=== PATIENT | male | born 1940 | race African-American/Black ===

== ENCOUNTER 2024-08-16 12:25 | Emergency (ER) | payer BC, MEDICARE ==
[~2024-08-16] VITALS: Ht 182.9 cm; Wt 105.0 kg
[~2024-08-16 12:25] MED LIST: CEPH500C2 PO; DOXA4TAB3 PO; DUTA0.5C2 PO; LISI10TA26 PO
[2024-08-16 12:31] VITALS: O2SAT 98
[2024-08-16 13:46] LABS: CLARITY URINE CLEAR (CLEAR); COLOR URINE YELLOW (YELLOW); GLUCOSE URINE NEGATIVE (NEGATIVE); KETONES URINE NEGATIVE (NEGATIVE); LEUKOCYTE ESTERASE URINE NEGATIVE (NEGATIVE); NITRITE URINE NEGATIVE (NEGATIVE); OCCULT BLOOD URINE NEGATIVE (NEGATIVE); PH URINE 6.5 (4.5-8.0); PROTEIN URINE NEGATIVE (NEGATIVE); SPECIFIC GRAVITY URINE 1.005 (1.005-1.030); UROBILINOGEN URINE 0.2 E.U./dL (0.2-1.0)
[2024-08-16 13:52] LABS: BASOPHILS % 0.5 % (0.0-2.0); EOSINOPHILS % 1.8 % (0.0-5.0); HEMATOCRIT. 46.6 % (42.0-52.0); HEMOGLOBIN. 15.1 g/dL (14.0-18.0); LYMPHOCYTES % 24.8 % (20.0-50.0); MEAN CORPUSCULAR HEMOGLOBIN 29.7 pg (28.0-32.0); MEAN CORPUSCULAR HGB CONC 32.4 g/dL (31.0-37.0); MEAN CORPUSCULAR VOLUME 91.9 fL (80.0-94.0); MONOCYTES % 5.8 % (2.0-8.0); NEUTROPHILS % 67.1 % (40.0-76.0); PLATELET 216 x1000/uL (130-400); RED BLOOD CELL COUNT 5.07 mill/uL (4.7-6.1); RED CELL DISTRIBUTION WIDTH 13.4 % (11.6-14.6); WHITE BLOOD COUNT 8.8 x1000/uL (4.5-11.0)
[2024-08-16 14:01] LABS: CHLORIDE 106 mEq/L (98-107); INR 0.9; PROTHROMBIN TIME 10.4 sec (9.6-11.0)
[2024-08-16 14:02] LABS: CARBON DIOXIDE 28 mEq/L (21-32); POTASSIUM 3.9 mEq/L (3.5-5.1); SODIUM 141 mEq/L (136-145)
[2024-08-16 14:03] LABS: CALCIUM 9.5 mg/dL (8.7-10.4)
[2024-08-16 14:07] LABS: CREATININE 0.9 mg/dL (0.6-1.3); GLUCOSE 101 mg/dL (70-105)
[2024-08-16 14:08] LABS: UREA NITROGEN BLOOD 10 mg/dL (9-23)
[2024-08-16 14:09] LABS: TROPONIN I HIGH SENSITIVITY 7 ng/L (3.0-53)
[2024-08-16] MEDS: ONDANSETRON 4MG ODT PO ONE (14:51)
[2024-08-16 15:40] VITALS: BP 146/94; PULSE 72; RESP 16; TEMP 36.50292; O2SAT 98
== END 2024-08-16 15:44 | disposition home or self-care (01) ==
LOC: ER 12:25
DX: I10 Essential (primary) hypertension (principal)
CPT/HCPCS: 36415; 71045; 80048; 81003; 84484; 85025; 93005; 99284; Q0162